=== PATIENT | female | born 1950 | race Caucasian/White ===

== ENCOUNTER 2016-10-23 12:42 | Emergency (ER) | payer OTHER ==
--- NOTE | 2016-10-23 12:57 | EDPHY ---
H & P Stated Complaint: Right knww pain. [place] " pop" while skiing. Time Seen by Provider: 10/23/16 12:56 HPI/ROS: CHIEF COMPLAINT: Right knee pain and slight swelling following fall while skiing HISTORY OF PRESENT ILLNESS: The patient presents to the ED with complaints of right knee pain and swelling after she sustained a twisting injury while skiing earlier today. The patient has been ambulatory on her knee since that time. She does have a sensation of instability. She denies numbness or weakness. She denies additional complaints. Patient reports her symptoms are mild to moderate in nature. The patient denies any anticoagulant use. She denies prior history of knee pain or surgery. REVIEW OF SYSTEMS: A comprehensive 10 point review of systems is otherwise negative aside from elements mentioned in the history of present illness. Source: Patient - Personal History Current Tetanus/Diphtheria Vaccine: Yes Current Tetanus Diphtheria and Acellular Pertussis (TDAP): Yes - Medical/Surgical History Hx Asthma: No Hx Chronic Respiratory Disease: No Hx Diabetes: No Hx Cardiac Disease: No Hx Renal Disease: No Hx Cirrhosis: No Hx Alcoholism: No Hx HIV/AIDS: No Hx Splenectomy or Spleen Trauma: No Other PMH: Hypothyroid - Social History Smoking Status: Never smoked - Physical Exam Exam: General Appearance: Alert, no distress Respiratory: There are no retractions, lungs are clear to auscultation Cardiovascular: Regular rate and rhythm Gastrointestinal: Abdomen is soft and nontender, no masses, bowel sounds normal Neurological: 5/5 strength bilateral lower extremities, sensation intact to light touch Skin: Warm and dry, no rashes Musculoskeletal: Effusion noted to right knee, normal range motion, no instability Extremities: 2+ dorsalis pedis and posterior tibial pulses Constitutional: Initial Vital Signs Heart Rate 86 10/23/16 12:49 Respiratory Rate 17 10/23/16 12:49 Blood Pressure 148/93 H 10/23/16 12:49 O2 Sat (%) 93 10/23/16 12:49 Allergies/Adverse Reactions: No Known Allergies Allergy (Unverified 10/23/16 12:46) Home Medications: Medication Instructions Recorded Levothyroxine 10/23/16 Medical Decision Making - Diagnostics Imaging: MRI Right Knee History: Trauma. Instability. Ski injury. Technique: Sagittal T1, fast T2 2nd echo and thin oblique sagittal images through the cruciate ligaments. Axial and coronal fast T2 2nd echo imaging. Findings: The ACL is completely torn. The PCL is intact. There is a large knee joint effusion. There is a horizontal tear of the medial meniscus. The lateral meniscus is intact. There is bone marrow edema in the posterior medial and lateral tibial margins, without tibial plateau depression. The medial and lateral collateral ligaments are intact. There is degenerative or posttraumatic cartilage irregularity of the medial patellar facet. The medial patellar retinaculum is not continuous and is probably torn. I do not identify any obvious joint mice in the knee joint effusion. Impression: 1. Complete tear ACL. 2. Horizontal tear body and posterior horn medial meniscus 3. Bone bruising posterior tibia 4. Suspect tear of the medial patellar retinaculum ED Course/Re-evaluation: The patient presents to the ED for evaluation of a knee injury. Given her lack of bony tenderness, I did obtain an MRI of her knee which demonstrates an ACL tear, medial meniscal injury and injury of the patellar retinaculum. The patient will be placed in a knee immobilizer and given crutches. She will follow up with our on-call orthopedic surgeon Dr. Fields. Differential Diagnosis: Differential diagnosis considered includes ACL injury, patella dislocation, quadriceps tendon tear, meniscal injury Departure - Departure Disposition: Home, Routine, Self-Care Clinical Impression: Internal derangement of right knee involving anterior horn of medial meniscus Acute injury of anterior cruciate ligament of right knee Qualifiers: Encounter type: initial encounter Qualified Code(s): S89.81XA - Other specified injuries of right lower leg, initial encounter Condition: Good Instructions: ACL Injury (ED), Knee Immobilizer (ED) Additional Instructions: 1. Take Ibuprofen or Motrin 600 mg by mouth three times a day. 2. Crutches and knee immobilizer until seen by Orthopedic surgery. You may weightbear on your right leg. 3. You have a complete tear of your ACL, injury to your patella tendon and medial meniscus. Further evaluation will be required by Orthopedic surgery. You have been referred to Dr. Shadi Fields our on-call orthopedic surgeon who would be happy to see you on Tuesday. You may also follow up with an orthopedic surgeon when you return home. Referrals: PRISCILLA VILLANUEVA [Other] - As per Instructions Stand Alone Forms: Airline Excuse
[2016-10-23 17:44] VITALS: BP 149/90; PULSE 78; RESP 20; TEMP 98.6; O2SAT 97
== END 2016-10-23 17:44 | disposition home or self-care (01) ==
DX: S89.81XA Other specified injuries of right lower leg, initial encounter (principal); X58.XXXA Exposure to other specified factors, initial encounter; Y99.8 Other external cause status; Y93.23 Activity, snow (alpine) (downhill) skiing, snowboarding, sledding, tobogganing and snow tubing
CPT/HCPCS: 73721; 99284; L1830